=== PATIENT | male | born 1930 | race Caucasian/White ===

== ENCOUNTER → 2019-02-26 | Outpatient (CLI) | payer MEDICARE, OTHER ==
--- NOTE | 2019-02-26 13:07 | RAD ---
Bilateral lower extremity arterial duplex study 02/26/2019 CLINICAL HISTORY: Peripheral vascular disease. Leg pain. TECHNIQUE: Using a combination of real-time ultrasound imaging and color-flow and pulse doppler imaging techniques, duplex evaluation of the major arterial structures of both lower extremities was performed. Multiple images were obtained. FINDINGS: Mild to moderate atheromatous/atherosclerotic plaque formation is seen scattered throughout the major arterial structures of both lower extremities. The arterial waveforms are triphasic/biphasic throughout both lower extremities which the exception of the right dorsalis pedis artery which is monophasic. 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 Elevation of the peak systolic velocity within the proximal right posterior tibial artery is seen measuring 111 cm per second. This likely reflects an underlying stenosis of greater than 50 percent. No additional area of stenosis is seen within the major arterial structures of right lower extremity. No area of occlusion is noted. The peak systolic velocities within the major arterial structures of the left lower extremity taper normally. No hemodynamically significant stenosis or area of occlusion is seen. 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 This measures 2.8 cm in diameter. IMPRESSION: 1. Mild to moderate atheromatous/atherosclerotic plaque formation is seen involving the major arterial structures of both lower extremities. A greater than 50 percent stenosis is seen involving the proximal right posterior tibial artery. No area of occlusion is seen. 2. 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 Electronically signed by: Rafiq Mishra MD (02/26/2019 1:04 PM) [id number]
== END | disposition home or self-care (01) ==
LOC: US 11:09
PROVIDERS: ATTEND Internal Medicine
DX: I70.293 Other atherosclerosis of native arteries of extremities, bilateral legs (principal); I72.4 Aneurysm of artery of lower extremity
CPT/HCPCS: 93923